=== PATIENT | male | born 1950 | race Caucasian/White ===

== ENCOUNTER → 2024-02-02 08:39 | Outpatient (BNVA) | payer SELFPAY | PROVIDERS: Visit Provider Internal Medicine | DX: Z02.79 Encounter for issue of other medical certificate (principal) ==

== ENCOUNTER → 2025-08-17 07:40 | Outpatient (BNVA) | payer SELFPAY | PROVIDERS: Visit Provider Internal Medicine | DX: Z02.79 Encounter for issue of other medical certificate (principal) ==